=== PATIENT | female | born 1985 | race Caucasian/White ===

== ENCOUNTER 2018-08-06 09:24 | Day surgery (SDC) | payer OTHER ==
[2018-08-06] MEDS ORDERED: LACTATED RINGERS 1,000 ML IV ONE (09:36)
--- NOTE | 2018-08-06 10:01 | ANESTHESIA ---
Pre-Anesthesia VS, & Labs - Diagnosis Contraception - Procedure Remove and replace mirena IUD Vital Signs: Temp Pulse Resp BP Pulse Ox 37.4 C 70 12 117/89 H 100 08/06/18 09:37 08/06/18 09:37 08/06/18 09:37 08/06/18 09:37 08/06/18 09:37 Height 5 ft 5 in Weight (kg) 68.9 kg - NPO >8 hours - Is Patient ?: Waiver signed Home Medications and Allergies Home Medications: Ambulatory Orders Budesonide/Formoterol Fumarate [Symbicort 160-4.5 Mcg Inhaler] 2 puffs PO BID 08/03/18 Diazepam [Valium] 10 mg PO DAILY 08/03/18 Metoprolol Tartrate 25 mg PO BID 08/03/18 Montelukast [Singulair] 10 mg PO QPM 08/03/18 Budesonide/Formoterol Fumarate [Symbicort 160-4.5 Mcg Inhaler] 2 puffs PO BID 08/03/18 Diazepam [Valium] 10 mg PO DAILY 08/03/18 Metoprolol Tartrate 25 mg PO BID 08/03/18 Montelukast [Singulair] 10 mg PO QPM 08/03/18 Allergies/Adverse Reactions: Allergies Allergy/AdvReac Type Severity Reaction Status Date / Time acetaminophen [From Vicodin] Allergy Emesis Verified 08/03/18 13:19 amoxicillin Allergy Hives Verified 08/03/18 13:16 aspirin Allergy Unknown Verified 08/03/18 13:19 hydrocodone [From Vicodin] Allergy Emesis Verified 08/03/18 13:19 Penicillins Allergy Hives Verified 08/03/18 13:16 Sulfa (Sulfonamide Allergy Respiratory Verified 08/03/18 13:19 Antibiotics) NSAIDS (Non-Steroidal AdvReac Unknown Verified 08/06/18 10:06 Anti-Inflamma Anes History & Medical History - Anesthetic History Anesthesia Complications: reports: Post-Operative Nausea/Vomiting - Medical History Cardiovascular: reports: Other (Irregular Heart rate) Pulmonary: reports: Asthma Gastrointestinal: reports: Other (Gastric bypass surgery) Urinary: reports: None Neuro: reports: Migraines Musculoskeletal: reports: None Endocrine/Autoimmune: reports: None Blood Disorders: reports: None Skin: reports: None Smoking Status: Never smoker Psychosocial: reports: Anxiety (uses diazepam daily) - Surgical History General: Gastric surgery Eyes Ears Nose Throat (EENT): Tonsil/Adenoidectomy, Other (Sinus surgery) Gynecologic: Breast implants, Other (Laparoscopy for endometreosis and left breast lumpectomy) Dermatologic: Other (Lump removed from neck and low back) Exam General: Alert, Oriented x3, Cooperative, No acute distress Dental: WNL Mouth Openin Fingerbreadth Neck Mobility: Normal Mallampati classification: I Thyromental Distance: 4-6 cm Respiratory: Lungs clear, Normal breath sounds, No respiratory distress, No accessory muscle use Cardiovascular: Regular rate, Normal S1, Normal S2, No murmurs Mental/Cognitive Status: Alert/Oriented X3, Normal for patient Plan Anesthesia Type: General Consent for Procedure(s) Verified and Reviewed: Yes Code Status: Attempt Resuscitation ASA classification: 2-Mild systemic disease Is this case an emergency?: No
[2018-08-06] MEDS ORDERED: SCOPOLAMINE PATCH TOP ONE (10:15)
[2018-08-06 10:16] LABS: HCG UR QUAL NEGATIVE
[2018-08-06] MEDS ORDERED: LIDOCAINE 1% 50 ML MDV ONE (10:43)
[2018-08-06] MEDS ORDERED: LIDOCAINE 1% 50 ML MDV SUBQ ONE ×2 (11:09)
[2018-08-06] MEDS ORDERED: PROPOFOL 200 MG/20 ML VIAL IVP ONE (11:19)
[2018-08-06] MEDS ORDERED: ONDANSETRON 4 MG/2 ML VIAL IVP ONE (11:19)
[2018-08-06] MEDS ORDERED: MIDAZOLAM 2 MG/2 ML VIAL IVP ONE (11:19)
[2018-08-06] MEDS ORDERED: DEXAMETHASONE 4 MG/ML VIAL IVP ONE (11:19)
[2018-08-06] MEDS ORDERED: fentaNYL 100 MCG/2 ML VIAL IVP ONE (11:19)
[2018-08-06] MEDS ORDERED: oxyCODONE 5 MG TABLET PO PRN (11:23)
--- NOTE | 2018-08-06 11:31 | OPERATIVE REPORT ---
Operative Report - General Procedure Date: 08/06/18 Planned Procedure: remove/replace Mirena IUD Pre-Op Diagnosis: remove/replace IUD Procedure Performed: FREDRICK Post Op Diagnosis: FREDRICK - Procedure Note Primary Surgeon: Dulce Anesthesia Provider: Franky Anesthesia Technique: General ET tube, Regional block Urine Output (mL): 300 - Other Other Information/Narrative: EUA Uterus NSSC AV, normal adnexa Description of operation: The patient was brought to the operating room, placed supine on the operating table and given general anesthesia by LMA. She was then placed in low lithotomy stirrups, and prepped and draped in the usual sterile fashion. She was straight cathed for 300 cc of clear urine. A time out was performed. An EUA was performed. The old Mirena was removed without difficulty. A speculum was placed in her vagina and a paracervical block with 20cc of 1% lidocaine was done. A single toothed tenaculum was applied. The uterus sounded to 7cm. A Mirena IUD was placed without difficulty and the string was shortened to 3 cm. She was then awakened and taken to the recovery room in stable condition.
[2018-08-06] MEDS: fentaNYL 100 MCG/2 ML VIAL ONE ×2 (11:33→11:38)
[2018-08-06] MEDS ORDERED: HYDROmorphone 0.5 MG/0.5 ML SYRINGE ONE (11:44)
[2018-08-06] MEDS ORDERED: KETOROLAC 15 MG/ML VIAL ONE (11:52)
[2018-08-06] MEDS ORDERED: ACETAMINOPHEN 500 MG TABLET PO ONE (11:57)
[2018-08-06 12:13] VITALS: BP 116/83
== END 2018-08-06 09:25 | disposition home or self-care (01) ==
LOC: SDS 09:24
PROVIDERS: ATTEND Obstetrics & Gynecology
PROC: 0UPD7HZ Removal of Contraceptive Device from Uterus and Cervix, Via Natural or Artificial Opening (ICD-10-PCS; 2018-08-06)
PROC: 0UH97HZ Insertion of Contraceptive Device into Uterus, Via Natural or Artificial Opening (ICD-10-PCS; principal; 2018-08-06 11:00)
DX: Z30.8 Encounter for other contraceptive management (principal); J45.909 Unspecified asthma, uncomplicated; R10.9 Unspecified abdominal pain
CPT/HCPCS: 58300; 58301; 81025; A9270; J1170; J3490; J7120

== ENCOUNTER 2019-05-20 11:20 | Day surgery (SDC) | payer OTHER ==
[2019-05-20] MEDS ORDERED: PROPOFOL 200 MG/20 ML VIAL IVP ONE (11:21)
[2019-05-20] MEDS ORDERED: MIDAZOLAM 2 MG/2 ML VIAL IVP ONE (11:21)
[2019-05-20] MEDS ORDERED: LIDOCAINE 2% 10 ML MDV SUBQ ONE (11:21)
[2019-05-20] MEDS ORDERED: fentaNYL 100 MCG/2 ML VIAL IVP ONE (11:21)
[2019-05-20] MEDS ORDERED: LACTATED RINGERS 1,000 ML IV ONE ×2 (11:24→15:58)
[2019-05-20 11:58] LABS: HCG UR QUAL NEGATIVE
--- NOTE | 2019-05-20 12:04 | ANESTHESIA ---
Pre-Anesthesia VS, & Labs - Diagnosis Retained IUD - Procedure Remove retained IUD Vital Signs: Temp Pulse Resp BP Pulse Ox 36.7 C 65 12 117/93 H 100 05/20/19 11:24 05/20/19 11:24 05/20/19 11:24 05/20/19 11:24 05/20/19 11:24 Height 5 ft 5 in Weight (kg) 67.4 kg - NPO >8 hours, Other (Sip water at 0930) - Is Patient ?: No Home Medications and Allergies Budesonide/Formoterol Fumarate [Symbicort 160-4.5 Mcg Inhaler] 2 puffs PO BID 08/03/18 Diazepam [Valium] 10 mg PO DAILY 08/03/18 Metoprolol Tartrate 25 mg PO BID 08/03/18 Montelukast [Singulair] 10 mg PO QPM 08/03/18 Allergies/Adverse Reactions: Allergies Allergy/AdvReac Type Severity Reaction Status Date / Time amoxicillin Allergy Hives Verified 05/16/19 09:00 aspirin Allergy Unknown Verified 05/16/19 09:00 hydrocodone [From Vicodin] Allergy Emesis Verified 05/16/19 09:00 Penicillins Allergy Hives Verified 05/16/19 09:00 Sulfa (Sulfonamide Allergy Respiratory Verified 05/16/19 09:00 Antibiotics) NSAIDS (Non-Steroidal AdvReac Unknown Verified 05/16/19 09:00 Anti-Inflamma Anes History & Medical History - Anesthetic History Anesthesia Complications: reports: Post-Operative Nausea/Vomiting Family history of Anesthesia Complications: Denies Family history of Malignant Hyperthermia: Denies - Medical History Cardiovascular: reports: None, Hypertension Pulmonary: reports: Asthma Gastrointestinal: reports: GERD, Other Urinary: reports: None Neuro: reports: Migraines Musculoskeletal: reports: None Endocrine/Autoimmune: reports: None Blood Disorders: reports: None Skin: reports: None Smoking Status: Never smoker Psychosocial: reports: No issues indicated - Surgical History General: Gastric surgery Eyes Ears Nose Throat (EENT): Tonsil/Adenoidectomy Gynecologic: Breast implants Dermatologic: Other (Lump removed from neck and low back) Exam General: Alert, Oriented x3, Cooperative Dental: WNL Mouth Opening: Greater than 4 Fingerbreadths Neck Mobility: Normal Mallampati classification: I Thyromental Distance: greater than 6 cm Respiratory: Lungs clear Cardiovascular: Regular rate Mental/Cognitive Status: Alert/Oriented X3 Cognitive Status: Within normal limits Plan Anesthesia Type: MAC Consent for Procedure(s) Verified and Reviewed: Yes Code Status: Attempt Resuscitation ASA classification: 2-Mild systemic disease Is this case an emergency?: No
[2019-05-20] MEDS: LIDOCAINE-MPF 1% 30 ML VIAL ONE ×2 (15:57→16:05)
[2019-05-20] MEDS ORDERED: ACETAMINOPHEN 1,000 MG/100 ML 100 ML IV ONE (16:14)
[2019-05-20] MEDS ORDERED: HYDROmorphone 0.5 MG/0.5 ML SYRINGE ONE (16:20)
--- NOTE | 2019-05-20 16:20 | OPERATIVE REPORT ---
Operative Report - General Procedure Date: 05/20/19 Planned Procedure: Removal of Mirena IUD Pre-Op Diagnosis: Desire for IUD removal Procedure Performed: IUD removal Post Op Diagnosis: Same as above - Procedure Note Primary Surgeon: Dulce Anesthesia Provider: Chio Anesthesia Technique: MAC Pathology: none Estimated Blood Loss (mL): 0 Indications: desire for IUD removal Findings: IUD string visible Complications: none - Other Other Information/Narrative: The patient was taken to the operating room and placed supine on the operating table. A timeout was performed. She was given intravenous sedation and placed in low lithotomy stirrups. Her vagina was prepped in the usual sterile fashion. A paracervical block was done with 10 cc of 1% lidocaine. The IUD was removed a Sedrick-Frazier clamp without difficulty. The instruments were withdrawn from the vagina and the patient was awakened and taken to the recovery room in stable condition.
[2019-05-20] MEDS ORDERED: oxyCODONE 5 MG TABLET ONE (17:08)
[2019-05-20 17:22] VITALS: BP 126/74
== END 2019-05-20 11:21 | disposition home or self-care (01) ==
LOC: SDS 11:20
PROVIDERS: ATTEND Obstetrics & Gynecology
PROC: 0UPD7HZ Removal of Contraceptive Device from Uterus and Cervix, Via Natural or Artificial Opening (ICD-10-PCS; principal; 2019-05-20 13:00)
DX: Z30.432 Encounter for removal of intrauterine contraceptive device (principal); I10 Essential (primary) hypertension; J45.909 Unspecified asthma, uncomplicated
CPT/HCPCS: 81025

== ENCOUNTER 2021-11-25 07:11 | Outpatient (CLI) | payer OTHER ==
--- NOTE | 2021-11-25 10:00 | MRI Report ---
PROCEDURE: Lumbar Spine W/O INDICATIONS: DORSALGIA TECHNIQUE: Noncontrast sagittal T1 spin echo and T2 fast echo, sagittal STIR, axial T1 and T2 fast spin echo thr ough the lumbar spine. In cases with scoliosis, additional coronal T2 fast spin echo may be performe d. COMPARISON: None. FINDINGS: Image quality: Excellent. Alignment and Curvature: There is normal bony alignment. Bone Marrow: Marrow is of normal overall signal. No acute vertebral body compression fractures. Spinal Cord: Conus medullaris terminates at the L1 level. Visualized cord demonstrates normal signa l and size. Paraspinous Soft Tissues: No paravertebral masses. Right renal cyst. T12-L1: Normal in appearance. L1-L2: Normal in appearance. L2-L3: Normal in appearance. L3-L4: Slight loss of disc signal. Mild, diffuse disc bulge. No central stenosis. Mild bilateral ne ural foraminal narrowing. No neural compression. L4-L5: Slight loss of disc signal. Mild, diffuse disc bulge. No central stenosis. Moderate bilatera l neural foraminal narrowing. No neural compression. L5-S1: Normal in appearance. IMPRESSION: 1. Mild L3-L4 and L4-L5 degenerative disc disease. 2. No central stenosis. 3. Mild bilateral L3-L4 and L4-L5 neural foraminal narrowing. 4. No neural compression. Reviewed by: Natividad Kruger MD, PhD on 11/25/2021 9:59 AM PDT Approved by: Natividad Kruger MD, PhD on 11/25/2021 9:59 AM PDT Station ID: [id number]
== END 2021-11-25 07:12 | disposition home or self-care (01) ==
LOC: DI 07:11
PROVIDERS: ATTEND Physician Assistant
DX: M51.36 Other intervertebral disc degeneration, lumbar region (principal); M48.061 Spinal stenosis, lumbar region without neurogenic claudication

== ENCOUNTER 2022-04-02 11:37 | Outpatient (CLI) | payer OTHER ==
--- NOTE | 2022-04-02 15:17 | CT Report ---
PROCEDURE: Abdomen/Pelvis WO INDICATIONS: LIPOMA OF TORSO TECHNIQUE: Noncontrast 5 mm thick sections acquired from the diaphragms to the symphysis. 5 mm coronal and sagi ttal reformats were then performed. For radiation dose reduction, the following was used: automated exposure control, adjustment of mA and/or kV according to patient size. COMPARISON: Correlation is made with lumbar spine MRI, 11/25/2021. FINDINGS: Image quality: Excellent. ABDOMEN: Lung bases: Lung bases are clear. Heart size is normal. Mammoplasty implants are incidentally note d. Solid organs: Liver and spleen are normal in size. Gallbladder wall does not appear thickened. P ancreas is normal in contours. No adrenal nodules. Kidneys are normal in size, without hydronephros is or nephrolithiasis. Peritoneum and bowel: Bariatric surgery can be seen. Unenhanced bowel loops demonstrate normal wal l thickness and caliber. No free fluid or air. A normal appendix is incidentally noted. Nodes and vessels: No retroperitoneal or mesenteric adenopathy by size criteria. Aorta and inferior vena cava are normal in caliber. Miscellaneous: No ventral hernias. There have clinical concern is marked involving the left lower back, as on series 3 image 51. There i s a benign-appearing subcutaneous fat-containing lesion seen that measures 1.8 x 1.5 x 2.4 cm. Along the superior aspect of this lipoma, scarring change can be seen, which is best demonstrated on series 6 image 44. PELVIS: Genitourinary: Bladder wall thickness is normal. The uterus demonstrates an unremarkable appearance for age. No adnexal masses are seen. An IUD is seen at the expected location. Miscellaneous: No inguinal hernias or adenopathy. Bones: No suspicious bony lesions. No vertebral body compression fractures. IMPRESSION: At the site of clinical concern, there is a subcutaneous lipoma seen with scarring along its superior aspect. Incidental note is made of: Mammaplasty implants Bariatric surgery IUD Normal appendix Reviewed by: Erik Reese MD on 04/02/2022 2:15 PM [facility] Approved by: Erik Reese MD on 04/02/2022 2:15 PM [facility]I Station ID: [id number]
== END 2022-04-02 11:38 | disposition home or self-care (01) ==
LOC: DI 11:37
PROVIDERS: ATTEND Physical Medicine & Rehabilitation
DX: D17.1 Benign lipomatous neoplasm of skin and subcutaneous tissue of trunk (principal)

== ENCOUNTER 2022-06-30 10:26 | Day surgery (SDC) | payer OTHER ==
[2022-06-30] MEDS ORDERED: LACTATED RINGERS 1,000 ML IV ONE (10:32)
[2022-06-30 10:43] LABS: HCG UR QUAL NEGATIVE
[2022-06-30] MEDS ORDERED: LIDOCAINE MPF 2%-EPI 1:200000 20 ML VIAL ONE (11:28)
[2022-06-30] MEDS ORDERED: BUPIVACAINE 0.25% PF 10 ML VIAL ONE (11:28)
--- NOTE | 2022-06-30 11:36 | ANESTHESIA ---
Pre-Anesthesia VS, & Labs - Diagnosis L lower back lipoma - Procedure L lower back lipoma excision Vital Signs: Temp Pulse Resp BP Pulse Ox O2 Flow Rate 36.4 C L 71 16 129/96 H 100 06/30/22 10:35 06/30/22 10:35 06/30/22 10:35 06/30/22 10:35 06/30/22 10:35 Height: 5 ft 5 in Weight (kg): 69 kg Body Mass Index: 25.3 BMI Classification: Overweight - NPO >8 hours - Is Patient ?: No - Lab Results Lab results reviewed: Yes Home Medications and Allergies Home Medications: Ambulatory Orders Acetaminophen [Tylenol] 650 mg PO Q6H PRN 06/22/22 Budesonide/Formoterol Fumarate [Symbicort 160-4.5 Mcg Inhaler] 1 puffs INH BID 06/22/22 Cyanocobalamin [Vitamin B-12] 1,000 mcg IM ONCE 06/22/22 Cyclobenzaprine [Flexeril] 10 mg PO TID PRN 06/22/22 Ergocalciferol [Vitamin D2] 1 tab PO OAW 06/22/22 Gabapentin [Neurontin] 300 mg PO TID 06/22/22 Ipratropium/Albuterol [Combivent Respimat] 1 puffs IH PRN PRN 06/22/22 diphenhydrAMINE [Benadryl] 25 mg PO Q4-6H PRN 06/22/22 Metoprolol Tartrate 25 mg PO BID 08/03/18 Montelukast [Singulair] 10 mg PO QPM 08/03/18 Acetaminophen [Tylenol] 650 mg PO Q6H PRN 06/22/22 Budesonide/Formoterol Fumarate [Symbicort 160-4.5 Mcg Inhaler] 1 puffs INH BID 06/22/22 Cyanocobalamin [Vitamin B-12] 1,000 mcg IM ONCE 06/22/22 Cyclobenzaprine [Flexeril] 10 mg PO TID PRN 06/22/22 Ergocalciferol [Vitamin D2] 1 tab PO OAW 06/22/22 Gabapentin [Neurontin] 300 mg PO TID 06/22/22 Ipratropium/Albuterol [Combivent Respimat] 1 puffs IH PRN PRN 06/22/22 diphenhydrAMINE [Benadryl] 25 mg PO Q4-6H PRN 06/22/22 Allergies/Adverse Reactions: Allergies Allergy/AdvReac Type Severity Reaction Status Date / Time amoxicillin Allergy Hives Verified 06/30/22 10:28 aspirin Allergy Unknown Verified 06/30/22 10:28 hydrocodone [From Vicodin] Allergy Emesis Verified 06/30/22 10:28 Penicillins Allergy Hives Verified 06/30/22 10:28 Sulfa (Sulfonamide Allergy Respiratory Verified 06/30/22 10:28 Antibiotics) NSAIDS (Non-Steroidal AdvReac Unknown Verified 06/30/22 10:28 Anti-Inflamma Anes History & Medical History - Anesthetic History Anesthesia Complications: reports: No previous complications Family history of Anesthesia Complications: Denies Family history of Malignant Hyperthermia: Denies - Medical History Cardiovascular: reports: Hypertension, Arrhythmia Pulmonary: reports: Asthma Gastrointestinal: reports: GERD, Other Urinary: reports: None Neuro: reports: Migraines Musculoskeletal: reports: Chronic back pain Endocrine/Autoimmune: reports: None Blood Disorders: reports: None Skin: reports: None Smoking Status: Never smoker - Surgical History General: reports: Gastric surgery Eyes Ears Nose Throat (EENT): reports: Rhinoplasty, Tonsil/Adenoidectomy Gynecologic: reports: Breast implants Dermatologic: reports: Other Exam General: Alert, Oriented x3, Cooperative Dental: WNL Mouth Openin Fingerbreadth Neck Mobility: Normal Mallampati classification: II Thyromental Distance: 4-6 cm Respiratory: Lungs clear, Normal breath sounds, No respiratory distress Cardiovascular: Regular rate Neurological: Normal speech Mental/Cognitive Status: Alert/Oriented X3, Normal for patient Cognitive Status: Within normal limits Plan Anesthesia Type: MAC, Total IV Consent for Procedure(s) Verified and Reviewed: Yes Code Status: Attempt Resuscitation ASA classification: 2-Mild systemic disease Is this case an emergency?: No
[2022-06-30] MEDS ORDERED: PROPOFOL 500 MG/50 ML 500 MG/50 ML VIAL ONE (13:15)
[2022-06-30] MEDS ORDERED: MIDAZOLAM 2 MG/2 ML VIAL ONE (13:16)
[2022-06-30] MEDS ORDERED: fentaNYL 100 MCG/2 ML VIAL ONE ×2 (13:17→14:27)
[2022-06-30] MEDS ORDERED: ceFAZolin 1 GM VIAL ONE (13:28)
[2022-06-30] MEDS ORDERED: BUPIVACAINE 0.25% PF 30 ML VIAL SUBQ ONE ×2 (13:56→14:09)
[2022-06-30] MEDS ORDERED: LIDOCAINE MPF 1%-EPI 1:200000 30 ML VIAL SUBQ ONE ×2 (13:56→14:09)
[2022-06-30] MEDS ORDERED: PROPOFOL 200 MG/20 ML VIAL IVP ONE (14:12)
[2022-06-30] MEDS ORDERED: KETOROLAC 30 MG/ML VIAL ONE (14:28)
[2022-06-30] MEDS ORDERED: LACTATED RINGERS 300 ML IV ONE (14:34)
[2022-06-30] MEDS ORDERED: ATROPINE ABBOJECT 1 MG/10 ML SYRINGE IVP PRN (14:39)
[2022-06-30] MEDS ORDERED: ONDANSETRON 4 MG/2 ML VIAL IVP PRN ×2 (14:39→14:53)
[2022-06-30] MEDS ORDERED: METOCLOPRAMIDE 10 MG/2 ML VIAL IVP PRN (14:39)
[2022-06-30] MEDS ORDERED: HYDROmorphone 0.5 MG/0.5 ML SYRINGE IVP PRN (14:39)
[2022-06-30] MEDS ORDERED: NALOXONE 0.4 MG/ML VIAL IVP PRN (14:39)
[2022-06-30] MEDS ORDERED: ePHEDrine 50 MG/ML VIAL IVP PRN (14:39)
[2022-06-30] MEDS ORDERED: fentaNYL 100 MCG/2 ML VIAL IVP PRN (14:39)
--- NOTE | 2022-06-30 14:41 | ANESTHESIA POST OP EVALUATION ---
Anesthesia Post Eval - Post Anesthesia Eval Vitals: Last Vital Signs Temp 36.4 C L 06/30/22 10:35 Pulse 71 06/30/22 10:35 Resp 16 06/30/22 10:35 BP 129/96 H 06/30/22 10:35 Pulse Ox 100 06/30/22 10:35 O2 Flow Rate CV Function Including HR & BP: Stable Pain Control: Satisfactory, Additional Therapies Ordered (10/03) Nausea & Vomiting: Negative Mental Status: Baseline Respiratory Status: Airway Patent Hydration Status: Satisfactory Anesthesia Complications: None
[2022-06-30] MEDS ORDERED: ACETAMINOPHEN 1,000 MG/100 ML 1,000 MG/100 ML BAG IV ONE (14:44)
[2022-06-30] MEDS ORDERED: oxyCODONE 5 MG TABLET PO PRN (14:53)
--- NOTE | 2022-06-30 14:59 | OPERATIVE REPORT ---
Operative Report - General Procedure Date: 06/30/22 Planned Procedure: excision recurrent left lower back lipoma/ painful scar tissue Pre-Op Diagnosis: painful recurrent left lower back lipoma/ scar tissue Procedure Performed: excision recurrent back lipoma/ painful scar tissue 3 x 4 cm 3.5 cm intermediate repair Post Op Diagnosis: same - Procedure Note Primary Surgeon: alex hensley Anesthesia Technique: Local, MAC Pathology: benign/ not sent Estimated Blood Loss (mL): 0 Drain/Tube Type: Other (none) Indications: painful tender mass left lower back Findings: as above Complications: none - Other Other Information/Narrative: The patient was prepped identified brought to the operating room and placed in right lateral decubitus position. She has history of chronic left lower back pain. She has had excision 2 different times of nodular adipose tissue of the left lower back. When surgery was complicated by wound infection and dehiscence she has painful nodular adipose tissue underlying the 2 transverse scars her primary care provider ordered a CT scan which by report shows a lipoma. She has seen physiatry and she understands some of her back pain is not related to the this adipose tissue or scar tissue. Monitored anesthesia care and IV sedation was given. He was prepped and draped in a sterile fashion. Local anesthetic was given. Lower incision was excised with a larger elliptical incision measuring approximately 2 cm wide by 3-1/2 cm long. Scar tissue of the 2 prior excisions in the underlying nodular adipose tissue was removed back to normal healthy tissue and down to fascia. Hemostasis was assured. Intermediate repair was then performed. Deep subcutaneous tissue was closed with interrupted 2-0 Vicryl suture. More superficial adipose tissue was closed with additional 2-0 Vicryl. Buried interrupted subdermal 3-0 Vicryl suture was then placed. Skin was closed with a running 4-0 Monocryl subcuticular suture dressing was applied. She tolerated the procedure well was awakened and brought to recovery in good condition.
[2022-06-30] MEDS ORDERED: LACTATED RINGERS 1,000 ML IV SCH (15:00)
[2022-06-30] MEDS ORDERED: HYDROmorphone 0.5 MG/0.5 ML SYRINGE ONE (15:02)
[2022-06-30 15:37] VITALS: BP 120/83
== END 2022-06-30 10:27 | disposition home or self-care (01) ==
LOC: SDS 10:26
PROVIDERS: ATTEND Surgery
DX: D17.1 Benign lipomatous neoplasm of skin and subcutaneous tissue of trunk (principal); I10 Essential (primary) hypertension; F41.9 Anxiety disorder, unspecified
CPT/HCPCS: 21931; 81025; J0131; J1170; J7120